=== PATIENT | male | born 1940 | race Caucasian/White ===

== ENCOUNTER 2020-11-08 08:07 | Outpatient (REF) | payer MEDICARE, SELFPAY ==
[2020-11-08 11:44] LABS: Prostate Specific Antigen 3.87 ng/mL (<0.05-4.0)
== END 2020-11-08 08:08 | disposition home or self-care (01) ==
LOC: HO.10HDL 08:07
PROVIDERS: Visit Provider Urology
DX: N40.1 Benign prostatic hyperplasia with lower urinary tract symptoms (principal); Z12.5 Encounter for screening for malignant neoplasm of prostate
CPT/HCPCS: 84153

== ENCOUNTER 2021-04-24 10:42 | Outpatient (REF) | payer MEDICARE, SELFPAY ==
[2021-04-24 10:45] LABS: MANUAL DIFF FLAG NO
[2021-04-24 11:53] LABS: Basophils Percent Auto 0.3 % (0-2); Eosinophils Absolute Auto 0.2 X10*3/uL (0.0-0.4); Eosinophils Percent Auto 3.3 % (0-4); Hematocrit 41.4 % (42-52); Hemoglobin 13.5 g/dl (14.0-18.0); Imm Gran Abs Auto 0.01 X10*3/uL (0.00-0.03); Imm Gran Pct Auto 0.1 % (0.0-0.4); Lymphocytes Absolute Auto 1.5 X10*3/uL (1.2-4.9); Mean Corpuscular HGB Conc 32.6 g/dl (31.0-36.0); Mean Corpuscular Hemoglobin 29.4 pg (27.0-33.0); Mean Corpuscular Volume 90.2 fL (80-98); Mean Platelet Volume 10.2 fL (9.4-12.4); Monocytes Absolute Auto 0.8 X10*3/uL (0.1-1.2); Monocytes Percent Auto 11.5 % (2-11); Neutrophils Absolute Auto 4.2 X10*3/uL (2.0-8.3); Neutrophils Percent Auto 62.8 % (45-73); Platelet Count 196 X10*3/uL (160-400); Red Blood Count 4.59 X10*6/uL (4.60-5.80); Red Cell Distribution Width 12.3 % (11.0-16.0); White Blood Count 6.7 X10*3/uL (4.8-10.8)
[2021-04-24 12:23] LABS: Glucose Urine UA NEG (NEG); Leukocyte Esterase Urine 2+ (NEG); Nitrite Urine POS (NEG); Urine Blood NEG (NEG); Urine Ketones NEG (NEG); Urine Protein NEG (NEG-TRACE)
[2021-04-24 12:26] LABS: Appearance Urine CLOUDY; Color Urine YELLOW
[2021-04-24 13:07] LABS: Bacteria Urine 3+ /LPF; RBC Urine 0-2 /HPF (0); WBC Urine 30-49 /HPF (0-4)
[2021-04-24 13:09] LABS: Estimated Average Glucose 143 mg/dL; Hemoglobin A1c % 6.6 %
[2021-04-24 13:25] LABS: Creatinine Urine 85.36 mg/dL; Microalbum/Creatinine Ratio Ur 29.2 ug/mg cr
[2021-04-24 13:32] LABS: Alanine Aminotransferase 16 U/L (0-40); Albumin Level 4.2 g/dL (3.5-5.0); Alkaline Phosphatase 108 U/L (39-117); Anion Gap 13 (12-20); Aspartate Amino Transferase 19 U/L (5-37); Blood Urea Nitrogen 19 mg/dL (9-16); Calcium 9.5 mg/dL (8.4-10.2); Carbon Dioxide 23 mmol/L (22-29); Chloride 107 mmol/L (96-108); Cholesterol 145 mg/dL; Estimated Glomerular Filt Rate > 60; Glucose Fasting 118 mg/dL (60-99); HDL Cholesterol 60 mg/dL; LDL Cholesterol Calculated 64 mg/dl; Potassium 4.2 mmol/L (3.3-5.1); Sodium 139 mmol/L (135-145); Total Protein 6.6 g/dL (6.5-8.0); Triglycerides 109 mg/dL
[2021-04-24 13:41] LABS: PSA,Total (Free>4and<10) 6.41 ng/mL (0.00-4.00); Reflex LDLD? No
[2021-04-25 10:16] LABS: Free Prostate Spec Ag 1.7 ng/mL; Percent Free Prostate Spec Ag 31 % (calc) (>25); Prostate Specific Ag Total 5.4 ng/mL (< OR = 4.0)
== END 2021-04-24 10:43 | disposition home or self-care (01) ==
LOC: HO.LNP 10:42
PROVIDERS: Visit Provider Internal Medicine
DX: I10 Essential (primary) hypertension (principal); E11.9 Type 2 diabetes mellitus without complications; E78.00 Pure hypercholesterolemia, unspecified; N40.0 Benign prostatic hyperplasia without lower urinary tract symptoms; Z12.5 Encounter for screening for malignant neoplasm of prostate
CPT/HCPCS: 80053; 80061; 81001; 81003; 82043; 83036; 84153; 84154; 85025

== ENCOUNTER 2021-08-11 07:36 | Outpatient (REF) | payer MEDICARE, SELFPAY ==
--- NOTE | ~2021-08-11 | MR_ITS ---
EXAMINATION: MR LUMBAR SPINE WITHOUT AND WITH CONTRAST CLINICAL INFORMATION: Lower extremity pain and weakness. COMPARISON: CT scan of the lumbar spine 09/14 2019. MRI scan of the lumbar spine 03/23/2012. TECHNIQUE: MRI of the lumbar spine was obtained using routine sequences with and without contrast. Intravenous contrast: Gadavist 7.5 mL FINDINGS: VERTEBRAL BODIES AND PARASPINAL STRUCTURES: There is a 3 mm grade 1 anterolisthesis of L4 on L5. There is a trace anterolisthesis of L3 on L4. There is multilevel narrowing of intervertebral disc heights and loss of signal, relatively sparing L5-S1. There are mild degenerative endplate contour changes at multiple levels. There are small Schmorl's nodes at adjacent endplates in the lower thoracic and in the lumbar spine. Vertebral body heights are maintained and no fractures are demonstrated. T1 and T2 hyperintense areas are noted in the bodies of T11 and T1, most consistent with hemangiomata. Overall, marrow signal is slightly heterogenous. There are bilateral renal cysts, most prominent toward the upper pole of the left kidney. The prostate gland is enlarged with a transverse diameter of 6.1 cm. There is no abnormal osseous enhancement. CONUS MEDULLARIS AND CAUDA EQUINA: Normal, terminating at the level of L1. The lower thoracic spinal cord appears normal. There is marked crowding of the cauda equina nerve roots at L1-L2. The filum terminale appears normal. There is no abnormal enhancement of the spinal cord or cauda equina nerve roots. SPINAL LEVELS: T12-L1: There is mild bilateral facet arthropathy. Disc contour is normal. There is no central stenosis or foraminal narrowing. L1-L2: There is moderate bilateral facet arthropathy with ligamenta flava hypertrophy. There is now a broad-based posterior disc protrusion extending into the left greater than right neural foramina, and there is impingement on the exiting right L1 and extraforaminal left L1 nerve roots. There is marked narrowing of the bilateral subarticular recesses, and there is severe central stenosis. This is progressed compared to prior imaging. L2-L3: There is moderate bilateral facet arthropathy. There are sequelae of a posterior decompression. There is a posterior disc protrusion, extending into the neural foramina with impingement on the exiting L2 nerve roots. There is narrowing of the bilateral subarticular recesses. There is no central stenosis. L3-L4: There is severe bilateral facet arthropathy. There are sequelae of a posterior decompression. There is a broad-based posterior disc protrusion extending into the neural foramina bilaterally, more prominently on the right. There is impingement on the exiting L3 nerve roots bilaterally. The neural foramina are further narrowed by facet osteophytes, particularly on the right. There is narrowing of the bilateral subarticular recesses. There is no central stenosis. L4-L5: There is markedly severe bilateral facet arthropathy. There are sequelae of a posterior decompression. There are right greater than left foraminal disc protrusions, and there is severe mass effect on the exiting right L5 nerve root which appears similar compared to prior imaging. The narrowing of the left neural foramen is slightly decreased compared to the prior study. There is narrowing of the bilateral subarticular recesses, and there is moderate to severe central stenosis. L5-S1: There is severe bilateral facet arthropathy. There is a broad-based posterior disc protrusion extending into the neural foramina bilaterally, with impingement on the exiting L5 nerve roots. The foramina are further narrowed by facet osteophytes, particularly on the right. There has been interval decrease in the prominence of the left-sided disc protrusion/extrusion on the left, but there is still moderate central stenosis. MR/MR lumbar spine wo/w con IMPRESSION: 1. At L1-L2 there is facet arthropathy and there is now a broad-based posterior disc protrusion extending into the neural foramina with impingement on the exiting and extraforaminal L1 nerve roots. There is marked narrowing of the subarticular recesses and there is severe central stenosis. 2. At L3-L4 there are sequelae of a posterior decompression. There is impingement on the exiting left L3 nerve from a disc protrusion. There is narrowing of the bilateral subarticular recesses, but there is no central stenosis. 3. At L4-L5 there is markedly severe facet arthropathy. There are sequelae of a posterior decompression. There are bilateral foraminal disc protrusions, more prominent on the right with severe mass effect on the exiting right L5 nerve root. There is moderate to severe central stenosis. 4. At L5-S1 there is severe facet arthropathy. There is a posterior disc protrusion extending into the neural foramina bilaterally with impingement on the exiting L5 nerve roots. There has been interval decrease in a prominent left-sided disc protrusion/extrusion on the left, but there is still moderate central stenosis. 5. There is prostatomegaly.
[2021-08-11 07:54] LABS: Blood Urea Nitrogen 18 mg/dL (9-16); Estimated Glomerular Filt Rate > 60
== END 2021-08-11 07:37 | disposition home or self-care (01) ==
LOC: HO.MRI 07:36
PROVIDERS: PCP Internal Medicine; Visit Provider Physical Medicine & Rehabilitation
DX: M79.605 Pain in left leg (principal); M79.604 Pain in right leg; R53.1 Weakness; R26.81 Unsteadiness on feet
CPT/HCPCS: 36415; 72158; 82565; 84520; A9585

== ENCOUNTER 2021-10-24 10:35 | Outpatient (REF) | payer MEDICARE, SELFPAY ==
[2021-10-24 11:07] LABS: Estimated Average Glucose 134 mg/dL; Hemoglobin A1c % 6.3 %
[2021-10-24 11:16] LABS: Alanine Aminotransferase 20 U/L (0-40); Albumin Level 4.1 g/dL (3.5-5.0); Alkaline Phosphatase 116 U/L (39-117); Aspartate Amino Transferase 20 U/L (5-37); Bilirubin Direct 0.3 mg/dL (0.0-0.5); Bilirubin Total 0.8 mg/dL (0.0-1.0); Cholesterol 155 mg/dL; Glucose Fasting 130 mg/dL (60-99); HDL Cholesterol 61 mg/dL; LDL Cholesterol Calculated 79 mg/dl; Total Protein 6.6 g/dL (6.5-8.0); Triglycerides 78 mg/dL
[2021-10-24 11:50] LABS: Reflex LDLD? No
== END 2021-10-24 10:36 | disposition home or self-care (01) ==
LOC: HO.LNP 10:35
PROVIDERS: Visit Provider Internal Medicine
DX: E11.9 Type 2 diabetes mellitus without complications (principal); E78.00 Pure hypercholesterolemia, unspecified
CPT/HCPCS: 80061; 80076; 82947; 83036

== ENCOUNTER 2021-12-18 14:38 | Outpatient (REF) | payer MEDICARE, SELFPAY ==
[2021-12-18 14:57] LABS: MANUAL DIFF FLAG NO
[2021-12-18 15:15] LABS: Basophils Percent Auto 0.5 % (0-2); Eosinophils Absolute Auto 0.3 X10*3/uL (0.0-0.4); Eosinophils Percent Auto 4.2 % (0-4); Hemoglobin 13.3 g/dl (14.0-18.0); Imm Gran Abs Auto 0.03 X10*3/uL (0.00-0.03); Imm Gran Pct Auto 0.4 % (0.0-0.4); Lymphocytes Absolute Auto 1.4 X10*3/uL (1.2-4.9); Lymphocytes Percent Auto 17.5 % (20-40); Mean Corpuscular HGB Conc 32.4 g/dl (31.0-36.0); Mean Corpuscular Volume 89.5 fL (80.0-98.0); Mean Platelet Volume 9.9 fL (9.4-12.4); Monocytes Absolute Auto 0.9 X10*3/uL (0.1-1.2); Monocytes Percent Auto 11.1 % (2-11); Neutrophils Absolute Auto 5.4 x10*3/uL (2.0-8.3); Neutrophils Percent Auto 66.3 % (45-73); Platelet Count 222 X10*3/uL (160-400); Red Blood Count 4.58 X10*6/uL (4.60-5.80); Red Cell Distribution Width 12.5 % (11.0-16.0); White Blood Count 8.1 X10*3/uL (4.8-10.8)
[2021-12-18 15:28] LABS: Partial Thromboplastin Time 39.3 SEC (24.1-38.0)
[2021-12-18 15:40] LABS: Anion Gap 13 (12-20); Blood Urea Nitrogen 24 mg/dL (9-16); Carbon Dioxide 26 mmol/L (22-29); Chloride 108 mmol/L (96-108); Estimated Glomerular Filt Rate 45; Glucose Random 123 mg/dL (60-115); Potassium 4.9 mmol/L (3.3-5.1); Sodium 142 mmol/L (135-145)
== END 2021-12-18 14:39 | disposition home or self-care (01) ==
LOC: HO.LAB 14:38
PROVIDERS: PCP Internal Medicine; Visit Provider Internal Medicine
DX: Z01.818 Encounter for other preprocedural examination (principal)
CPT/HCPCS: 36415; 80048; 85025; 85610; 85730

== ENCOUNTER 2022-04-30 11:32 | Outpatient (REF) | payer MEDICARE, SELFPAY ==
[2022-04-30 11:37] LABS: MANUAL DIFF FLAG NO
[2022-04-30 11:46] LABS: Basophils Percent Auto 0.4 % (0-2); Eosinophils Absolute Auto 0.3 X10*3/uL (0.0-0.4); Eosinophils Percent Auto 4.6 % (0-4); Hematocrit 40.5 % (42.0-52.0); Imm Gran Abs Auto 0.02 X10*3/uL (0.00-0.03); Imm Gran Pct Auto 0.3 % (0.0-0.4); Lymphocytes Absolute Auto 1.9 X10*3/uL (1.2-4.9); Lymphocytes Percent Auto 26.4 % (20-40); Mean Corpuscular HGB Conc 32.1 g/dl (31.0-36.0); Mean Corpuscular Hemoglobin 28.6 pg (27.0-33.0); Mean Platelet Volume 9.7 fL (9.4-12.4); Monocytes Absolute Auto 0.8 X10*3/uL (0.1-1.2); Neutrophils Absolute Auto 4.1 x10*3/uL (2.0-8.3); Neutrophils Percent Auto 57.3 % (45-73); Platelet Count 212 X10*3/uL (160-400); Red Blood Count 4.55 X10*6/uL (4.60-5.80); Red Cell Distribution Width 12.7 % (11.0-16.0); White Blood Count 7.2 X10*3/uL (4.8-10.8)
[2022-04-30 11:57] LABS: Alanine Aminotransferase 20 U/L (0-40); Albumin Level 4.1 g/dL (3.5-5.0); Alkaline Phosphatase 99 U/L (39-117); Anion Gap 14 (12-20); Aspartate Amino Transferase 19 U/L (5-37); Bilirubin Total 0.8 mg/dL (0.0-1.0); Blood Urea Nitrogen 23 mg/dL (9-16); Calcium 9.3 mg/dL (8.4-10.2); Carbon Dioxide 23 mmol/L (22-29); Chloride 108 mmol/L (96-108); Cholesterol 150 mg/dL; Estimated Glomerular Filt Rate > 60; Glucose Fasting 113 mg/dL (60-99); HDL Cholesterol 60 mg/dL; LDL Cholesterol Calculated 71 mg/dl; Potassium 4.3 mmol/L (3.3-5.1); Sodium 141 mmol/L (135-145); Total Protein 6.5 g/dL (6.5-8.0); Triglycerides 97 mg/dL
[2022-04-30 12:10] LABS: Estimated Average Glucose 137 mg/dL; Hemoglobin A1c % 6.4 %
[2022-04-30 12:18] LABS: PSA,Total (Free>4and<10) 2.85 ng/mL (0.00-4.00)
[2022-04-30 12:23] LABS: Appearance Urine HAZY; Color Urine YELLOW; Glucose Urine UA NEG (NEG); Leukocyte Esterase Urine 2+ (NEG); Nitrite Urine POS (NEG); Urine Blood TRACE (NEG); Urine Ketones NEG (NEG); Urine Protein NEG (NEG-TRACE)
[2022-04-30 12:44] LABS: Creatinine Urine 113.94 mg/dL; Microalbum/Creatinine Ratio Ur 17.5 ug/mg cr
[2022-04-30 13:10] LABS: Bacteria Urine 4+ /LPF; RBC Urine 0 /HPF (0)
== END 2022-04-30 11:33 | disposition home or self-care (01) ==
LOC: HO.LNP 11:32
PROVIDERS: PCP Internal Medicine; Visit Provider Internal Medicine
DX: Z12.5 Encounter for screening for malignant neoplasm of prostate (principal); E11.9 Type 2 diabetes mellitus without complications; E78.00 Pure hypercholesterolemia, unspecified; I10 Essential (primary) hypertension
CPT/HCPCS: 80053; 80061; 81001; 82043; 83036; 84153; 85025

== ENCOUNTER → 2022-06-29 09:11 | Outpatient (BNVA) | payer MEDICARE, SELFPAY | PROVIDERS: PCP Internal Medicine; Visit Provider Surgery | DX: R10.32 Left lower quadrant pain (principal) | CPT/HCPCS: 99212 ==

== ENCOUNTER 2022-07-10 09:00 | Outpatient (REF) | payer MEDICARE, SELFPAY ==
--- NOTE | ~2022-07-10 | CT_ITS ---
EXAMINATION: CT ABDOMEN AND PELVIS WITHOUT CONTRAST CLINICAL INFORMATION: Left lower quadrant pain. COMPARISON: CT abdomen and pelvis 10/22/2019. TECHNIQUE: Multidetector volumetric imaging was performed from the superior aspect of the liver through the pubic symphysis. Sagittal and coronal reformatted images were obtained on the technologist's workstation. This CT examination was performed using dose optimization techniques as appropriate, variously including the following: *Automated exposure control *Adjustment of mA and/or kV according to patient size (this includes techniques or standardized protocols for targeted exams where dose is matched to indication/reason for exam; i.e. extremities or head) *Use of iterative reconstruction technique DLP: 421 mGy-cm. FINDINGS: LUNG BASES: The lung bases are clear. The heart size is normal. LIVER, GALLBLADDER, AND BILIARY TREE: The liver is normal in size, shape, and attenuation. No focal hepatic lesion or biliary ductal dilatation is present. The gallbladder has been surgically removed. PANCREAS: Unremarkable. SPLEEN: Unremarkable. ADRENAL GLANDS: Unremarkable. KIDNEYS AND URETERS: The kidneys are normal in size, shape, and attenuation. There are no radiopaque renal calculi. There is moderate right hydroureteronephrosis likely secondary to prostate enlargement. There is no left-sided hydronephrosis. There are bilateral exophytic renal cyst. The larger lateral left renal cyst midpole medially measures 6.9 x 6.2 cm x 7.6 cm and 5 Hounsfield units. The largest right renal cyst midpole measures 3.9 x 4.1 x 4.2 cm and 6 Hounsfield units. BLADDER: Unremarkable. GASTROINTESTINAL TRACT: There is scattered stool, diverticuli and gas seen throughout the colon without distention. The small bowel loops are normal caliber. Appendix is normal caliber. No free air or inflammatory process seen. There is no free fluid. ABDOMINAL WALL: No significant hernia is appreciated. LYMPH NODES: Normal. VASCULAR: The abdominal aorta is of normal caliber. No aneurysmal dilatation. PELVIC VISCERA: No free air or free fluid seen. OSSEOUS STRUCTURES: There are degenerative disc changes with vacuum disc phenomena L5-S1, L4-L5 disc level. No lytic or sclerotic process seen. CT/CT abdomen pelvis wo con IMPRESSION: There is a bilateral renal cysts, stable. There is moderate right hydroureteronephrosis of unknown etiology. This could be secondary to prostate enlargement. No bladder wall thickening seen. There are no radiopaque renal or gallbladder calculi. Colonic diverticulosis without diverticulitis. The gallbladder has been surgically removed. Moderate prostate enlargement. Fleischner guidelines were followed.
[2022-07-10] MEDS: Barium Sulfate Oral (Mocha) 450 ML ORAL.SUSP 900 ML PO (11:06)
== END 2022-07-10 09:01 | disposition home or self-care (01) ==
LOC: HO.CT 09:00
PROVIDERS: PCP Internal Medicine; Visit Provider Surgery
DX: R10.32 Left lower quadrant pain (principal)
CPT/HCPCS: 74176

== ENCOUNTER → 2022-07-26 11:22 | Outpatient (BNVA) | payer MEDICARE, SELFPAY | PROVIDERS: PCP Internal Medicine; Visit Provider Surgery | DX: R10.32 Left lower quadrant pain (principal) | CPT/HCPCS: 99212 ==

== ENCOUNTER 2022-08-14 09:56 | Outpatient (REF) | payer MEDICARE, SELFPAY ==
[2022-08-14 10:49] LABS: Urine Cytology See Pathology rpt
== END 2022-08-14 09:57 | disposition home or self-care (01) ==
LOC: HO.10HDL 09:56
PROVIDERS: Visit Provider Urology
DX: R31.0 Gross hematuria (principal)
CPT/HCPCS: 88112; 88121

== ENCOUNTER 2022-10-16 09:03 | Outpatient (REF) | payer MEDICARE, SELFPAY ==
[2022-10-16 11:18] LABS: Thyroid Stimulating Hormone 2.86 uIU/mL (0.32-4.0)
[2022-10-16 15:27] LABS: Vitamin B12 1112 pg/mL (200-900)
[2022-10-18 11:59] LABS: Ceruloplasmin 24 mg/dL (18-36)
[2022-10-18 23:29] LABS: Prot Elec - Alpha1 0.3 g/dL (0.2-0.3); Prot Elec - Alpha2 0.9 g/dL (0.5-0.9); Prot Elec - Beta 1 0.4 g/dL (0.4-0.6); Prot Elec - Beta 2 0.3 g/dL (0.2-0.5); Prot Elec - Gamma 0.7 g/dL (0.8-1.7); Prot Elec - Total Protein 6.5 g/dL (6.1-8.1)
[2022-10-19 14:08] LABS: Anti Nuclear Antibody Screen NEGATIVE (NEGATIVE)
== END 2022-10-16 09:04 | disposition home or self-care (01) ==
LOC: HO.10HDL 09:03
PROVIDERS: Visit Provider Internal Medicine
DX: R20.0 Anesthesia of skin (principal); R53.1 Weakness; G62.9 Polyneuropathy, unspecified
CPT/HCPCS: 36415; 82390; 82607; 84165; 84443; 86038; 86039

== ENCOUNTER 2022-10-29 10:56 | Outpatient (REF) | payer MEDICARE, SELFPAY ==
[2022-10-29 12:01] LABS: Estimated Average Glucose 131 mg/dL; Hemoglobin A1c % 6.2 %
[2022-10-29 12:28] LABS: Alanine Aminotransferase 18 U/L (0-40); Albumin Level 4.5 g/dL (3.5-5.0); Alkaline Phosphatase 108 U/L (39-117); Aspartate Amino Transferase 20 U/L (5-37); Bilirubin Direct 0.3 mg/dL (0.0-0.5); Cholesterol 167 mg/dL; Glucose Fasting 158 mg/dL (60-99); HDL Cholesterol 63 mg/dL; LDL Cholesterol Calculated 83 mg/dl; Total Protein 6.8 g/dL (6.5-8.0); Triglycerides 109 mg/dL
[2022-10-29 14:11] LABS: Reflex LDLD? No
== END 2022-10-29 10:57 | disposition home or self-care (01) ==
LOC: HO.LNP 10:56
PROVIDERS: Visit Provider Internal Medicine
DX: E11.9 Type 2 diabetes mellitus without complications (principal); E78.00 Pure hypercholesterolemia, unspecified
CPT/HCPCS: 80061; 80076; 82947; 83036

== ENCOUNTER 2023-05-02 10:57 | Outpatient (REF) | payer MEDICARE, SELFPAY ==
[2023-05-02 11:02] LABS: MANUAL DIFF FLAG NO
[2023-05-02 12:13] LABS: Basophils Percent Auto 0.4 % (0-2); Eosinophils Absolute Auto 0.3 X10*3/uL (0.0-0.4); Eosinophils Percent Auto 4.3 % (0-4); Hematocrit 41.8 % (42.0-52.0); Hemoglobin 13.3 g/dl (14.0-18.0); Imm Gran Abs Auto 0.02 X10*3/uL (0.00-0.03); Imm Gran Pct Auto 0.3 % (0.0-0.4); Lymphocytes Absolute Auto 1.5 X10*3/uL (1.2-4.9); Lymphocytes Percent Auto 21.3 % (20-40); Mean Corpuscular HGB Conc 31.8 g/dl (31.0-36.0); Mean Corpuscular Volume 91.1 fL (80.0-98.0); Mean Platelet Volume 9.9 fL (9.4-12.4); Monocytes Absolute Auto 0.9 X10*3/uL (0.1-1.2); Monocytes Percent Auto 11.7 % (2-11); Neutrophils Absolute Auto 4.5 x10*3/uL (2.0-8.3); Platelet Count 209 X10*3/uL (160-400); Red Blood Count 4.59 X10*6/uL (4.60-5.80); Red Cell Distribution Width 12.6 % (11.0-16.0); White Blood Count 7.2 X10*3/uL (4.8-10.8)
[2023-05-02 12:14] LABS: Appearance Urine Cloudy; Color Urine Yellow; Glucose Urine UA Negative (Negative); Leukocyte Esterase Urine Moderate (2+) (Negative); Nitrite Urine Positive (Negative); UMIC TRIGGER UACC YES; Urine Blood Negative (Negative); Urine Ketones Negative (Negative); Urine Protein Trace mg/dL (Neg-Trace)
[2023-05-02 12:17] LABS: Bacteria Urine 4+ (None Seen); RBC Urine 0-2 /HPF (0-2); Squamous Epithelial Cell Urine 0-2 /HPF (0-2); UACC Culture Trigger YES; WBC Urine >50 /HPF (0-5)
[2023-05-02 12:29] LABS: Estimated Average Glucose 131 mg/dL; Hemoglobin A1c % 6.2 %
[2023-05-02 12:48] LABS: Alanine Aminotransferase 18 U/L (0-40); Albumin Level 4.1 g/dL (3.5-5.0); Alkaline Phosphatase 117 U/L (39-117); Anion Gap 17 (12-20); Aspartate Amino Transferase 22 U/L (5-37); Bilirubin Total 0.5 mg/dL (0.0-1.0); Blood Urea Nitrogen 24 mg/dL (9-16); Calcium 9.4 mg/dL (8.4-10.2); Carbon Dioxide 24 mmol/L (22-29); Chloride 110 mmol/L (96-108); Estimated Glomerular Filt Rate > 60; Glucose Fasting 120 mg/dL (60-99); Potassium 4.3 mmol/L (3.3-5.1); Sodium 147 mmol/L (135-145); Total Protein 6.6 g/dL (6.5-8.0)
[2023-05-02 12:58] LABS: Creatinine Urine 136.99 mg/dL; Microalbum/Creatinine Ratio Ur 21.1 ug/mg cr
[2023-05-02 13:02] LABS: PSA,Total (Free>4and<10) 3.23 ng/mL (0.00-4.00)
== END 2023-05-02 10:58 | disposition home or self-care (01) ==
LOC: HO.LNP 10:57
PROVIDERS: Visit Provider Internal Medicine
DX: Z12.5 Encounter for screening for malignant neoplasm of prostate (principal); E11.9 Type 2 diabetes mellitus without complications; E78.00 Pure hypercholesterolemia, unspecified; N40.0 Benign prostatic hyperplasia without lower urinary tract symptoms; I10 Essential (primary) hypertension
CPT/HCPCS: 80053; 81001; 82043; 83036; 84153; 85025; 87086; 87088; 87186

== ENCOUNTER 2023-05-10 11:24 | Outpatient (REF) | payer MEDICARE, SELFPAY ==
[2023-05-10 11:42] LABS: Appearance Urine Clear; Color Urine Yellow; Glucose Urine UA Negative (Negative); Leukocyte Esterase Urine Moderate (2+) (Negative); Nitrite Urine Negative (Negative); PH 5.5 (5.0-9.0); Specific Gravity - Urine 1.015 (1.005-1.025); UMIC TRIGGER UACC YES; Urine Blood Negative (Negative); Urine Ketones Negative (Negative); Urine Protein Negative (Neg-Trace)
[2023-05-10 12:03] LABS: Bacteria Urine 2+ (None Seen); Hyaline Casts Urine 0-2 /LPF (0-2); RBC Urine 0-2 /HPF (0-2); Squamous Epithelial Cell Urine 0-2 /HPF (0-2); UACC Culture Trigger YES
== END 2023-05-10 11:25 | disposition home or self-care (01) ==
LOC: HO.LNP 11:24
PROVIDERS: Visit Provider Internal Medicine
DX: N39.0 Urinary tract infection, site not specified (principal)
CPT/HCPCS: 81001; 87086

== ENCOUNTER 2023-11-07 11:28 | Outpatient (REF) | payer MEDICARE, SELFPAY ==
[2023-11-07 12:15] LABS: Estimated Average Glucose 131 mg/dL; Hemoglobin A1c % 6.2 % (<6.0)
[2023-11-07 12:33] LABS: Alanine Aminotransferase 13 U/L (0-40); Albumin Level 4.2 g/dL (3.5-5.0); Alkaline Phosphatase 98 U/L (39-117); Aspartate Amino Transferase 17 U/L (5-37); Bilirubin Direct 0.3 mg/dL (0.0-0.5); Bilirubin Total 0.6 mg/dL (0.0-1.0); Glucose Fasting 130 mg/dL (60-99); Total Protein 6.9 g/dL (6.5-8.0)
[2023-11-07 12:36] LABS: Cholesterol 142 mg/dL (<200); HDL Cholesterol 60 mg/dL (>40); LDL Cholesterol Calculated 68 mg/dL (<100); Triglycerides 70 mg/dL (<150)
[2023-11-07 12:45] LABS: Reflex LDLD? No
== END 2023-11-07 11:29 | disposition home or self-care (01) ==
LOC: HO.LNP 11:28
PROVIDERS: Visit Provider Internal Medicine
DX: E11.9 Type 2 diabetes mellitus without complications (principal); E78.00 Pure hypercholesterolemia, unspecified
CPT/HCPCS: 80061; 80076; 82947; 83036

== ENCOUNTER 2024-04-02 09:48 | Outpatient (REF) | payer MEDICARE, SELFPAY ==
--- NOTE | ~2024-04-02 | XR_ITS ---
EXAMINATION: XR HIP, LEFT CLINICAL INFORMATION: Left hip pain. COMPARISON: CT abdomen/pelvis dated 07/10/2022. TECHNIQUE: Two views of the left hip. FINDINGS: No acute fracture or dislocation. Mild left hip joint space narrowing with moderate marginal osteophytes. Posterior acetabular unfused osteophyte, unchanged. Lateral acetabular subchondral cystic change. Findings are progressed when compared to the prior examination. No concerning lytic or blastic osseous lesion. No evidence of avascular necrosis. XR/XR hip LT min 2V IMPRESSION: Moderate left hip osteoarthritis, progressed when compared to the prior CT.
== END 2024-04-02 09:49 | disposition home or self-care (01) ==
LOC: HO.XRAY 09:48
PROVIDERS: PCP Internal Medicine; Visit Provider Internal Medicine
DX: M25.552 Pain in left hip (principal)
CPT/HCPCS: 73502

== ENCOUNTER 2024-04-14 10:19 | Outpatient (AMB) | payer MEDICARE, SELFPAY ==
--- NOTE | 2024-04-14 10:25 | MHC.OFFVIS ---
Vital Signs 04/14/24 10:28 Height 5 ft 10 in Weight 156 lb BMI 22.4 Intake Visit Reasons: New Patient - Left Wrist Injury Intake Note: Thomas an 83 year old left hand dominant male who presents today as a new patient for an evaluation of left wrist. Patient reports about 3 months he slipped on his bathroom floor causing him to fall on an outstretched hand. His pain has improved however he continues to have discomfort in the radial aspect of wrist. tender with movement of his thumb. He used a wrist brace for a while however he now only uses if he goes to gym. Allergies No Known Allergies Allergy (Mild, Unverified 04/14/24 10:35) NKA saurav inhibitors Allergy (Unknown, Unverified 04/14/24 10:35) Unknown Medication List - Last Reconciled 04/14/24 by Aleah Ambrose PA-C aspirin (Adult Aspirin Regimen) 81 mg PO DAILY atorvastatin 20 mg PO DAILY dutasteride 0.5 mg PO DAILY losartan 100 mg PO DAILY metformin mg PO metoprolol tartrate 25 mg PO BID tamsulosin 0.4 mg PO DAILY HPI HPI New Patient - Left Wrist Injury: Details: 83-year-old left hand dominant male who presents to the office today for evaluation of left wrist injury after he slipped on the bathroom floor causing him to fall on an outstretched hand, about 3 months ago. He reports he experienced a clicking in his wrist after the injury. He currently states he has improvement in his pain however he continues to have pain and discomfort on the radial aspect of her wrist. His wrist pain comes with twisting motions and he experiences tenderness with movement of his thumb. He is wearing the wrist brace when at gym. He has tried Tylenol for his pain. [facility] Medical History Bladder cancer Hypercholesteremia Hypertension Myocardial infarction Prostatism Surgical History H/O colonoscopy (12/17/11) History of left inguinal hernia repair (06/13/20) Social History (Updated 04/14/24 @ 10:35 by VEE Adkins) Alcohol intake: never Patient Tobacco Use Status: Never used Tobacco Current occupation: left hand dominant Review of Systems Const All systems reviewed & are unremarkable except as noted in HPI and below Physical Exam Vital Signs: BMI result Body Mass Index 22.4 Const General: cooperative, healthy appearing, comfortable, no acute distress, well developed and alert Orientation/consciousness: patient oriented x3 HEENT Head: Yes normal to inspection, Yes normocephalic and Yes atraumatic Eyes General: appearance normal, both eyes and all related structures Resp Effort & Inspection: normal respiratory effort and able to speak in complete sentences Cardio Rate: regular rate Peripheral pulses: Peripheral pulses 2+ throughout GI Palpation (GI): Soft to palpation Skin Lesions: no lesions Rashes: no rashes Neuro General: patient oriented x3 Extrem Other: Left wrist: Without deformity. No swelling. Mild tenderness over the radial styloid. Positive Bautista?s. No pain with CMC grind.? is able to make a full fist and fully extend all digits. NVI. Results Reviewed Results Reviewed: Xrays were obtained in the office today and personally reviewed by me of the left wrist are negative for acute or chronic abnormalities. Assessment & Plan Assessment & Plan (1) De Quervain's tenosynovitis, left: Code(s): M65.4 - Radial styloid tenosynovitis [de Quervain] Category: Medical Plan He was given a thumb spica Velcro wrist splint in the office today which he will wear with lifting activities. I recommend he wear the splint with sleeping however he states that he rather not wear it when sleeping. If symptoms persist or worsens, patient will contact the office for an injection, otherwise follow-up as needed. ? Orders: Orders XR wrist LT min 3V Today M25.532 - Pain in left wrist Patient Instructions: Scribed for Aleah Ambrose PA-C, by Nemesio Webb medical staff assistant, on 04/14/2024 at 10:30 AM EST.? I, Aleah Ambrose PA-C, have personally reviewed and agree with the information entered by the scribe. Coding Level of Care Code New Pt Level 3 (18388) Diagnoses De Quervain's tenosynovitis, left M65.4
[2024-04-14 10:28] VITALS: BMI 22.4
== END 2024-04-14 11:48 | disposition home or self-care (01) ==
PROVIDERS: PCP Internal Medicine; Visit Provider Physician Assistant
DX: M65.4 Radial styloid tenosynovitis [de Quervain] (principal)
CPT/HCPCS: 99203

== ENCOUNTER 2024-04-14 15:26 | Outpatient (REF) | payer MEDICARE, SELFPAY ==
--- NOTE | ~2024-04-14 | XR_ITS ---
EXAMINATION: XR WRIST, LEFT CLINICAL INFORMATION: Pain in left wrist. COMPARISON: None available. TECHNIQUE: PA, lateral, and oblique views of the left wrist. FINDINGS: The bones are diffusely demineralized. Moderate degenerative changes in the first carpometacarpal joint with joint space narrowing and hypertrophic change. Mild degenerative changes with narrowing and hypertrophic change on limited images of the metacarpophalangeal joints. Narrowing with degenerative changes in the radiocarpal space. A ring is present on the partially imaged proximal fourth digit. Multiple small ossific/calcific densities along the radial aspect of the distal radius and also adjacent to the distal ulna, of indeterminate age and etiology. XR/XR wrist LT min 3V IMPRESSION: 1. Moderate degenerative changes in multiple joints as detailed above. 2. Multiple small ossific/calcific densities along the radial aspect of the distal radius and also adjacent to the distal ulna, of indeterminate age and etiology.
== END 2024-04-14 15:27 | disposition home or self-care (01) ==
LOC: HO.HOSX 15:26
PROVIDERS: Visit Provider Physician Assistant
DX: M65.4 Radial styloid tenosynovitis [de Quervain] (principal)
CPT/HCPCS: 73110; 99202

== ENCOUNTER 2024-05-18 10:59 | Outpatient (REF) | payer MEDICARE, SELFPAY ==
[2024-05-18 11:02] LABS: MANUAL DIFF FLAG NO
[2024-05-18 11:22] LABS: Appearance Urine Cloudy; Color Urine Yellow; Glucose Urine UA Negative (Negative); Leukocyte Esterase Urine Moderate (2+) (Negative); Nitrite Urine Positive (Negative); UMIC TRIGGER UACC YES; Urine Blood Negative (Negative); Urine Ketones Negative (Negative); Urine Protein Trace mg/dL (Neg-Trace)
[2024-05-18 11:25] LABS: Basophils Percent Auto 0.6 % (0-2); Eosinophils Absolute Auto 0.3 X10*3/uL (0.0-0.4); Eosinophils Percent Auto 4.5 % (0-4); Hematocrit 39.9 % (42.0-52.0); Imm Gran Abs Auto 0.03 X10*3/uL (0.00-0.03); Imm Gran Pct Auto 0.5 % (0.0-0.4); Lymphocytes Absolute Auto 1.4 X10*3/uL (1.2-4.9); Lymphocytes Percent Auto 22.2 % (20-40); Mean Corpuscular HGB Conc 32.6 g/dl (31.0-36.0); Mean Corpuscular Hemoglobin 29.4 pg (27.0-33.0); Mean Corpuscular Volume 90.3 fL (80.0-98.0); Mean Platelet Volume 9.5 fL (9.4-12.4); Monocytes Absolute Auto 0.7 X10*3/uL (0.1-1.2); Monocytes Percent Auto 11.5 % (2-11); Neutrophils Absolute Auto 3.8 x10*3/uL (2.0-8.3); Neutrophils Percent Auto 60.7 % (45-73); Platelet Count 223 X10*3/uL (160-400); Red Blood Count 4.42 X10*6/uL (4.60-5.80); Red Cell Distribution Width 12.8 % (11.0-16.0); White Blood Count 6.3 X10*3/uL (4.8-10.8)
[2024-05-18 11:26] LABS: Bacteria Urine 4+ (None Seen); Hyaline Casts Urine 0-2 /LPF (0-2); RBC Urine 0-2 /HPF (0-2); Squamous Epithelial Cell Urine 0-2 /HPF (0-2); UACC Culture Trigger YES; WBC Urine >50 /HPF (0-5)
[2024-05-18 11:46] LABS: Alanine Aminotransferase 12 U/L (0-40); Alkaline Phosphatase 117 U/L (39-117); Anion Gap 13 (12-20); Aspartate Amino Transferase 13 U/L (5-37); Bilirubin Total 0.5 mg/dL (0.0-1.0); Blood Urea Nitrogen 23 mg/dL (9-16); Calcium 9.6 mg/dL (8.4-10.2); Carbon Dioxide 25 mmol/L (22-29); Chloride 108 mmol/L (96-108); Cholesterol 149 mg/dL (<200); Estimated Glomerular Filt Rate > 60; Glucose Random 139 mg/dL (60-115); HDL Cholesterol 58 mg/dL (>40); LDL Cholesterol Calculated 74 mg/dL (<100); Potassium 4.2 mmol/L (3.3-5.1); Sodium 142 mmol/L (135-145); Total Protein 6.5 g/dL (6.5-8.0); Triglycerides 88 mg/dL (<150)
[2024-05-18 12:05] LABS: PSA,Total (Free>4and<10) 4.56 ng/mL (0.00-4.00)
[2024-05-18 12:09] LABS: Estimated Average Glucose 140 mg/dL; Hemoglobin A1c % 6.5 % (<6.0)
[2024-05-18 12:21] LABS: Creatinine Urine 105.46 mg/dL; Microalbum/Creatinine Ratio Ur 37.9 ug/mg cr (<30)
[2024-05-19 11:07] LABS: Free Prostate Spec Ag 1.1 ng/mL; Percent Free Prostate Spec Ag 24 % (calc) (>25); Prostate Specific Ag Total 4.5 ng/mL (< OR = 4.0)
== END 2024-05-18 11:00 | disposition home or self-care (01) ==
LOC: HO.LNP 10:59
PROVIDERS: Visit Provider Internal Medicine
DX: E11.9 Type 2 diabetes mellitus without complications (principal); E78.00 Pure hypercholesterolemia, unspecified; N40.0 Benign prostatic hyperplasia without lower urinary tract symptoms; I10 Essential (primary) hypertension; Z12.5 Encounter for screening for malignant neoplasm of prostate
CPT/HCPCS: 80053; 80061; 81001; 82043; 82570; 83036; 84153; 84154; 85025; 87086

== ENCOUNTER 2024-11-23 11:13 | Outpatient (REF) | payer MEDICARE, SELFPAY ==
[2024-11-23 12:29] LABS: Estimated Average Glucose 137 mg/dL; Hemoglobin A1C 169.9317 umol/L; Hemoglobin A1c % 6.4 % (<6.0)
[2024-11-23 12:56] LABS: Alanine Aminotransferase 17 U/L (0-40); Albumin Level 4.4 g/dL (3.5-5.0); Alkaline Phosphatase 107 U/L (39-117); Aspartate Amino Transferase 28 U/L (5-37); Bilirubin Direct 0.2 mg/dL (0.0-0.5); Bilirubin Total 0.6 mg/dL (0.0-1.0); Cholesterol 160 mg/dL (<200); Glucose Fasting 137 mg/dL (60-99); HDL Cholesterol 72 mg/dL (>40); LDL Cholesterol Calculated 67 mg/dL (<100); Total Protein 7.1 g/dL (6.5-8.0); Triglycerides 108 mg/dL (<150)
[2024-11-23 13:39] LABS: Reflex LDLD? No
== END 2024-11-23 11:14 | disposition home or self-care (01) ==
LOC: HO.LNP 11:13
PROVIDERS: Visit Provider Internal Medicine
DX: E11.9 Type 2 diabetes mellitus without complications (principal); E78.00 Pure hypercholesterolemia, unspecified
CPT/HCPCS: 80061; 80076; 82947; 83036

== ENCOUNTER 2025-05-18 08:00 | Outpatient (REF) | payer MEDICARE, SELFPAY ==
--- OUTSIDE RECORDS SUMMARY | 2024-11-23 03:15 | XMS_ITS ---
Author Organization Brian Us MD Address [address] [place] [phone] Care Team Providers Care Global Analytics Head Name Role Phone Brian Us Primary Care Provider Results Component Value Reference Range Notes Liver Panel Reviewed date:11/23/2024 05:56:35 PM Interpretation: Performing Lab:[facility], [address] [place] [id number] Notes/Report: Bilirubin Total 0.6 0.0-1.0 mg/dL Bilirubin Direct 0.2 0.0-0.5 mg/dL Aspartate Amino Transferase 28 5-37 U/L Alanine Aminotransferase 17 0-40 U/L Total Protein 7.1 6.5-8.0 g/dL Albumin Level 4.4 3.5-5.0 g/dL Alkaline Phosphatase 107 39-117 U/L Glucose Fasting Reviewed date:11/23/2024 05:57:01 PM Interpretation: Performing Lab:[address] [id number] Notes/Report: Glucose Fasting 137 60-99 mg/dL A fasting glucose of 126 mg/dl or greater on more than one occasion is considered diagnostic of diabetes. Lipid Panel with Reflex Reviewed date:11/23/2024 05:57:10 PM Interpretation: Performing Lab:[address] [id number] Notes/Report: Triglycerides 108 <150 mg/dL Desirable Triglyceride: less than 150 mg/dL Borderline High Triglyceride 150-199 mg/dL High Triglyceride: 200-499 mg/dL Very High Triglyceride: greater than or equal to 5OO mg/dL Cholesterol 160 <200 mg/dL Desirable Cholesterol: less than 200 mg/dL Borderline High Cholesterol: 200-239 mg/dL High Cholesterol: greater than 239 mg/dL LDL Cholesterol Calculated 67 <100 mg/dL Desirable LDL: less than 100 mg/dL Near Optimal/Above Optimal LDL: 110-129 mg/dL Borderline High LDL: 130-159 mg/dL High LDL: 160-189 mg/dL Very High LDL: greater than or equal to 190 mg/dL HDL Cholesterol 72 >40 mg/dL Desirable HDL: greater than 40 mg/dL Note: This HDL assay may give artificially low results in patients with liver disease. Hemoglobin A1c Reviewed date:11/23/2024 05:56:44 PM Interpretation: Performing Lab:[address] [phone] Notes/Report: Hemoglobin A1c % 6.4 <6.0 % Hemoglobin A1C Reference Range Adults: 4.8 - 6.0 % Non diabetic: < 6.0 % Goal: < 7.0 % Additional Action Suggested: > 8.0 % Note: Hemoglobin A1c results are invalid for patients with abnormal amounts of HbF. Blood transfusions may impact the HbA1c concentration in the patient sample. Estimated Average Glucose 137 eAG = Estimated average glucose which is %A1C expressed as average glucose, using the formula of the V7W-Twsdhry Average Glucose study (ADAG), Diabetes Care, Vol.31,#8, Jun. 2007 REASON FOR VISIT FASTING LIPIDS Encounters Encounter Location Date Provider Diagnosis Brian Us MD [address] [place] [phone] 11/23/2024 Brian Us Type 2 diabetes sherrno itus without complication, without long-term current use of insulin E11.9 and Hypercholesteremia E78.00 Assessments Encounter Date Diagnosis (ICD Code) Assessment Notes Treatment Notes Treatment Clinical Notes Section Notes 11/23/2024 Type 2 diabetes mellitus without complication, without long-term current use of insulin (ICD-10 - E11.9) 11/23/2024 Hypercholesteremia (ICD-10 - E78.00) Plan Of Treatment Next Appt Details Provider Name:Brian Heller ier, 06/17/2025 09:30:00 AM, [address] [place] [address], [place] [address], [place], [place], [phone], Progress Notes * Thomas NAQVI WDOB: [birth year] (85 yo M)Acc No.[id number]:11/23/2024 Progress Note Patient: Thomas MENDOZA Provider: Reynaldo Us MD :1940 A ge:84 Y S ex:Male Date:11/23/2024 Address:[address] [place], [place] [phone] Subjective: * Chief Complaints: * 1 . FASTING LIPIDS. * Medical History: Objective: * Vitals: Assessment: * Assessment: 1. T ype 2 diabetes mellitus without complication, without long-term current use of insulin - E11.9 (Primary) 2 . H ypercholesteremia - E78.00 Plan: * Treatment: 2. H ypercholesteremia L AB: Liver Panel (Collection Date & Time - 11/23/2024 07:15 AM) L AB: Glucose Fasting (Collection Date & Time - 11/23/2024 07:15 AM) L AB: Lipid Panel with Reflex (Collection Date & Time - 11/23/2024 07:15 AM) L AB: Hemoglobin A1c (Collection Date & Time - 11/23/2024 07:15 AM) * Procedure Codes: 3 6415 VENIPUNCT, ROUTINE* * * The named appointment provid er may or may not be the originator of this progress note, and it is not deemed complete until electronically signed by the appointment provider. Sign off status: Pending * Provider: Reynaldo Us MD Date: 0 11/23/2024 Generated for Daniela mixon/Bethel/Alejandroitting on: 0 05/18/2025 12:25 PM EDT
[2025-05-18 11:14] LABS: MANUAL DIFF FLAG NO
[2025-05-18 11:19] LABS: Appearance Urine Clear; Glucose Urine UA Negative (Negative); Hematocrit 40.4 % (42.0-52.0); Hemoglobin 13.3 g/dl (14.0-18.0); Imm Gran Abs Auto 0.02 X10*3/uL (0.00-0.03); Imm Gran Pct Auto 0.3 % (0.0-0.4); Lymphocytes Absolute Auto 1.7 X10*3/uL (1.2-4.9); Mean Corpuscular HGB Conc 32.9 g/dl (31.0-36.0); Mean Corpuscular Hemoglobin 29.2 pg (27.0-33.0); Mean Corpuscular Volume 88.6 fL (80.0-98.0); NRBC Abs Auto 0.000 X10*3/uL (0.0-0.012); NRBC Pct Auto 0.0 /100WBC (0.0-0.2); PH 5.5 (5.0-9.0); Platelet Count 204 X10*3/uL (160-400); Red Blood Count 4.56 X10*6/uL (4.60-5.80); Specific Gravity - Urine 1.015 (1.005-1.025); UMIC TRIGGER UACC YES; White Blood Count 7.4 X10*3/uL (4.8-10.8)
[2025-05-18 11:32] LABS: Hemoglobin A1C 168.7379 umol/L; Total Hemoglobin (HGBA1C) 3499.9205 umol/L
[2025-05-18 11:35] LABS: Alanine Aminotransferase 17 U/L (0-40); Albumin Level 4.4 g/dL (3.5-5.0); Alkaline Phosphatase 96 U/L (39-117); Anion Gap 14 (12-20); Aspartate Amino Transferase 23 U/L (5-37); Blood Urea Nitrogen 19 mg/dL (9-16); Calcium 9.5 mg/dL (8.4-10.2); Carbon Dioxide 24 mmol/L (22-29); Chloride 107 mmol/L (96-108); Cholesterol 158 mg/dL (<200); Estimated Glomerular Filt Rate > 60; HDL Cholesterol 60 mg/dL (>40); Potassium 4.3 mmol/L (3.3-5.1); Sodium 141 mmol/L (135-145); Total Protein 6.8 g/dL (6.5-8.0); Triglycerides 145 mg/dL (<150)
[2025-05-18 12:04] LABS: PSA,Total (Free>4and<10) 5.65 ng/mL (0.00-4.00)
[2025-05-18 12:10] LABS: Microalbum/Creatinine Ratio Ur 10.4 ug/mg cr (<30)
--- OUTSIDE RECORDS SUMMARY | 2025-05-18 12:25 | XMS_ITS | Patient Health Record ---
Author Organization [facility] Address [address] [place] [address] Care Team Providers Care Wan Support Specialist Name Role Phone Brian Us MD Primary Care Provider Michelle Toth Unavailable [phone] Reason For Referral No Information Medications Medication SIG (Take, Route, Frequency, Duration) Notes Start Date End Date Status Crestor 40mg Active MoviPrep 100 GM as directed Orally 10/04/201111/2024 Active Metoprolol Tartrate 25mg Active Aspir-81 81mg Active Losartan Potassium 50mg Active Problems Problem Type SNOMED Code ICD Code Onset Dates Problem Status W/U Status Risk Notes Problem Diverticulosis of colon (finding) (124504908) Diverticulosis of colon (without mention of hemorrhage) (562.10) Active confirmed Problem Screening for malignant neoplasm of colon (758445140) Special screening for malignant neoplasms, colon (V76.51) Active confirmed Plan Of Treatment Future Test Test Name Order Date COLONOSCOPY 10/04/2011 Insurance Providers Payer Name Payer Address Payer Phone Subscriber Number Group Number Insured Name Patient Relationship to Insured Coverage Start Date Coverage End Date [facility] [employer] [address] [place] [address] [id number] MICHELLE MERAZ Self - patient is the insured Medical (General) History Medical History History ICD Code hypertension PR about 4 or 5 years ago tr eated with balloon angioplasty, without any subsequent problems bladder cancer treated with cystoscopy he denies any history of diabetes, lung disease, stroke, nor renal disease Surgical History Surgery Date(Month/Year) cholecystectomy cystoscopies for bladder cancer umbilical hernia surgery
--- OUTSIDE RECORDS SUMMARY | 2025-05-18 12:25 | XMS_ITS | Data Portability ---
Author Organization [facility], [facility] Address [address] [place] [address] Care Team Providers Care Line Helper Name Role Phone NAS [facility] Primary Care Provider Assessment Encounter Date Assessment Date Assessment LastModified by Organization Details LastModified Time 04/30/2024 04/30/2024 Imaging: Imaging ordered, independently reviewed and interpreted by Ron Paz MD reveals the following findings: XR Hip Left Hip: Two views of the hip were obtained including AP pelvis and groin lateral views. Moderate to severe DJD present. Changes consistent with osteoarthritis including joint space narrowing, subchondral sclerosis, and osteophyte formation. Arthrosis primarily affects the superior compartment. Impression: Bilateral hip posterior arthritis, left currently symptomatic, right currently asymptomatic Plan: I am prescribing this patient oral meloxicam. We had a legnthy discussion today regarding the nature of this medication including its indications, contradindications, risks, and potential side effects. The patient is to take this medication once daily in the morning and is specifically instructed to take it with food in order to reduce the risk of gastorintestional upset. I explained to the patient that this medication often requires a couple of days before it reaches steady-state within the blood and as such the patient may not experience relief with this medication until after a few days of taking it. I also advised the patient that they should contact their primary care provider to notify them that I have started this medication, as prolonged use of oral anti-inflammatory pain medications should be paired with routine assessments of kidney function. He was about to run out of his meloxicam and so I prescribed him a refill of this medication, I placed 3 refills on the prescription but advised him that he should consider coming off the medication when he has an intra-articular injection into his left hip. We are going to get him scheduled for an intra-articular injection with one of our physician assistants, and if he comes off the meloxicam following this injection and finds that he continues to experience good pain relief, then I would recommend he continue to remain off of meloxicam until his pain worsens again. We talked quite a bit today about the risk of kidney injury with long-acting anti-inflammatories , at his age of 84 he needs to be very cautious about use of this medication and I advised him that it is not realistic to expect that he would be able to remain on it for multiple years without facing the prospect of kidney damage. I think he would also benefit normal sleeve from physical therapy. My hope is that with a combination of physical therapy and an intra-articular injection, he is able to maintain excellent pain relief and function without the need for continuous anti-inflammatory treatment. He is certainly a candidate for hip replacement surgery but as long as he wishes to avoid surgery, we should try to enable that with continued nonsurgical treatment CC Dr. Nas Ruiz [email or web address] Not available 04/30/2024 10:48:01 Plan of Treatment Reminders Order Date Submit Date Provider Last Modified By Organization Details Last Modified Time Details Appointments None recorded. Lab None recorded. Referral physical therapist referral - left hip OA protocol, stretching strengtheni ng and ROM 2023 024 [email or web address] 14 Not available 16:05:29 Procedures None recorded. Surgeries None recorded. Imaging XR, hip, unilateral, 2 or 3 view - 203 2V left hip eval 2023 024 abrothers 14 [facility], [address] [facility] [place], [facility] [address], [place], [address], 4 16:05:29 Medication Orders meloxicam 15 mg tablet 2023 024 [facility] #[id number], [address] [facility], [place], [address], 4 14:45:29 Patient TargetsNo targets recorded. Patient InstructionsNo instructions recorded. Reason for Referral Physical Therapist Referral for Arthritis of left hip left hip OA protocol, stretching strengthening and ROM Referring Physician: Ron Paz, Orthopedic Surgery, [phone] Encounter Date: 04/30/2024 Results Created Date Observation Date Name Description Value Unit Range Abnormal Flag Note LastModifiedBy Organization Detail LastModifiedTime 04/07/20 24 04/02/2024 bobi apurva/fernando hall tic resul t No observ ation record ed. [email or web address] [facility] [address], [place], [address], 04/08/2024 11:26:39 04/30/20 24 04/30/2024 XR, hip, unila teral , 2 or 3 view http:/ [email or web address] ?Encry pted=s hAaTro YD8dLq bEUv6g %2BXZw aYqtaq 0bqfl% 2Fg9IQ a4ajBk vP9nXo QUaueC m3YtLR FvZlgJ JJ8mAn HZtai3 8t7502 AC0Kub nqBVqL eUC8mr 84%3D INTERFACE [facility] [address], [place], [address], 04/30/2024 09:20:19 04/30/20 24 04/30/2024 XR, hip, unila teral , 2 or 3 view http:/ [email or web address] ?Encry pted=s hAaTro YD8dLq bEUv6g %2BXZw aYqtaq 0bqfl% 2Fg9IQ a4ajBk vP9nXo QUaueC m3YtLR Fv[facility] 6o1323 AC0Kub nqBVqL eUC8mr 84%3D INTERFACE [facility] [address], [place], [address], 04/30/2024 09:20:21 Result Notes Documentation Provider Name and Address Organization Details Recorded Time Xr, Hip, Unilateral, 2 Or 3 View : [email or web address] Encrypted=xwPbNreEZ7gLmnK Uv6g%0TDFfmEudpe1ejch%2Fg 0ZMh0trTvvI6bAmFNutpXb7Kf GOSeGbaRGQ0nJaYLelq29r209 4CQ6QkzkxLDgKrJC4rg04%3D Not Available [facility] 04/30/2024 09:2 0:20 Xr, Hip, Unilateral, 2 Or 3 View : [email or web address] Encrypted=gdZpEwlZW7tTumH Uv6g%2PTBpmRsvgd4zbdp%2Fg 5REd3jjAgbB2hMoOAkolLn8No QPJqIaiSPE9fQiYNjdd82m975 0ZD7DxukzRCrGgMH9bs93%3D Not Available [facility] 04/30/2024 09:2 0:22 Problems Name Problem SNOMED Code Status Onset Date Resolution Date Notes Provider Name and Address Organization Details Recorded Time Arthritis of left hip 8886061209141 105 Active 2023 Ron Paz MD [address], [place], [address] , [facility] 4 09:45:29 Osteoarthr itis of left hip joint 9483410138893 08 Active 2023 Ron Paz MD [address], [place], [address] , [facility] 4 10:47:56 Problem Notes None recorded. Medical Equipment None Reported. Allergies No known drug allergies Medications Name Sig Start Date Stop Date Status Note LastModified by Organization Details LastModified Time metformin 500 mg tablet active Not Available Not Available No t Available atorvastatin 20 mg tablet active Not Available Not Available Not Available meloxicam 15 mg tablet Take 1 tablet every day by oral route after meal(s). active Not Available Not Available No t Available tramadol 50 mg tablet TAKE 1 TO 2 TABS BY MOUTH EVERY 8 HOURS NEEDED 10 DAYS active Not Available Not Available No t Available tamsulosin 0.4 mg capsule active Not Available Not Available N ot Available losartan 100 mg tablet active Not Available Not Available No t Available dutasteride 0.5 mg capsule active Not Available Not Availab le Not Available metoprolol tartrate 25 mg tablet active Not Available Not Available Not Available Vitals Date Recorded Body height Body mass index (BMI) Body weight Provider Name and Address Organization Details Last Updated DateTime 04/09/2024 177.8 cm 22.4 kg/m2 15500.41 g Ginny Carlosnnamdi [facility] 04/09/2024 14:03:20 Date Recorded Body height Body mass index (BMI) Body weight Provider Name and Address Organization Details Last Updated DateTime 04/30/2024 172.72 cm 23.7 kg/m2 28422.41 g GRABIEL GONSALEZ [facility] 04/30/2024 09:02:43 Date Recorded Body height Body mass index (BMI) Body weight Provider Name and Address Organization Details Last Updated DateTime 05/05/2024 172.72 cm 23.7 kg/m2 20199.41 g Brandon Chaneloney [facility] 05/05/2024 14:22:28 Social History None recorded. Functional Status None recorded. Mental Status None recorded. Family History Nothing Reported. Medical History No medical history recorded. Past Encounters Encounter ID Performer Location Encounter Start Date Encounter Closed Date Diagnosis/Indication Diagnosis SNOMED-CT Code Diagnosis ICD10 Code Diagnosis Note [id number] Sarah Edmond PA-C [facility] [address] [place] [address] 04/09/2024 13:52:11 05/01/2024 09:37:52 Osteoarthritis of left hip joint [id number] 62228 M16.12 [id number] MD Mello Arana [address] [place] [address] 04/30/2024 08:46:36 05/26/2024 12:17:10 Osteoarthritis of left hip joint 4230505534 67552 M16.12 Arthritis of left hip 10 20959987 770175 M13.740 [id number] ESTEFANY Montemayor [address] [place] [place] [address] 05/05/2024 13:58:32 06/01/2024 15:11:06 Osteoarthritis of left hip joint 2941976080 31678 M16.12 After a long discussion with the patient which included the risk and benefits of the procedure. Patient has excellent relief in his pain and symptoms with medication management alone. He has been taking meloxicam and tramadol. He stopped all medication s 4 days ago and symptoms have not returned. Therefore would recommend holding off on intra-radha cular cortisone injection today. If symptoms return would recommend reinitiati ng first meloxicam followed by tramadol. If symptoms continue even with that I would be happy to accommodat e him in my schedule for ultrasound -guided intra-radha cular cortisone injection as needed. He is in agreement with this. All questions and concerns were addressed and answered. Health Concerns Section Related Observation LastModified by Organization Detai ls LastModified Time None Recorded Concern Status LastModified by Organization Details LastModified Time None Recorded Advance Directives Directive None Recorded Payers Insurance Date Sequence Insurance Name Policy Number Policy Sanchez Covered Member ID Sanchez Member ID Guarantor Name 06/02/2024 2 [place] [id number] Thomas Naqvi [id number] Thomas Naqvi 05/05/2024 1 [place] [employer] Thomas Naqvi [id number] Thomas Naqvi Notes Date Note Type Note Provider Name and Address Organization Details Recorded Time 04/09/2024 text/html Patient seen und er general supervision of Dr. Pak who was available but who did not see the patient.HPI:83-year-o ld patient seen today regarding left hip pain. No specific inciting events or instance reported. Patient denies any falls or trauma. Began experiencing difficulty sometime ago which is becoming progressively worse. Difficulty with ambulatory activities. Has tried yoai-veo-yyepsxv pain relievers without significant relief. Comes in today for orthopedic care. Denies numbness or tingling lower extremity. Presents today with x-rays from his primary care providerPast family, medical, social history and review of systems has been reviewed, updated and signed by me and is located in the patient s chart.Examination:83- year-old no acute distress alert and oriented. On examination of left hip, no significant effusion erythema or warmth. Range of motion limited with groin pain elicited with internal rotation. No gross instability elicited. Calf is soft and nontender. Lower extremity neurovascularly intact.Right hip shows no warmth, erythema, swelling or effusion. Full ROM, 5/5 strength all muscle groups, and no evidence of instability.X-rays independently reviewed at [facility] 2 views left hip brought in on a disc by outside facility reveal noted arthritic change, no evidence of acute fracture. Osteophyte formation appreciated.Impressio n: Symptomatic left Hip arthritisPlan: Potential treatment options are discussed. Role of conservative management versus surgical intervention discussed. Possibilities including that of corticosteroid injection, total hip arthroplasty, vkku-ntd-ussfloy medications, and ambulatory assistive devices. Patient wished to proceed with prescription for meloxicam which was sent to his pharmacy, as well as an appointment with one of our joint surgeons for discussion of total hip replacement surgery. He requested Dr. Paz per his primary care doctor's referral. All questions answeredDrHCA [facility] speech recognition log turner software was used to create portions of this document. An attempt at proofreading has been made to minimize errors. Please call for corrections. Sarah Edmond PA-C [address], [place], [address], [facility] 04/09/2024 14:45:39 04/30/2024 text/html History of prese nt illness:Complaint: Left hip painPain: The pain is currently relatively well managed, he has been taking meloxicam over the last month and has had significant improvement with this medicationNon-operati ve treatment: He has been taking anti-inflammatories, he has not yet tried physical therapy or an intra-articular injectionRobert is an extremely friendly and pleasant 84-year-old male who presents today for evaluation for his left hip. He has radiographic evidence of bilateral hip posterior arthritis, moderate to severe in nature. He states that the pain has been present for a couple of months and he saw one of our physician assistants recently who prescribed him an long acting anti-inflammatory which he has been taking. He states that the pain has been improved since that point, he understands that he may require hip replacement surgery eventually but would like to try to avoid this procedure with nonoperative treatment if he can continue to do so.Past family, medical, social history and review of systems has been reviewed and updated, and is located in the patient s chart. Ron Paz MD [address], [place], [address], [facility] 04/30/2024 10:48:49 05/05/2024 text/html I am seeing the patient under the general supervision of Dr. Zaman who was available but who did not see the patient. Pleasant 84 year old male who has known diagnosis of left hip osteoarthritis. Presents today for ultrasound-guided intraarticular cortisone injection. However patient reports that he was taking his meloxicam and tramadol as previously prescribed and his symptoms have for the most part resolved. He stopped all medications over 4 days ago and states that symptoms have not returned. Therefore he elects to hold off on injection today. Sonya Downs PA-C [address] [facility] [address] [facility] [address] [facility] [address], [place], [address], [facility] 05/05/2024 14:44:26
[2025-05-19 18:09] LABS: Free Prostate Spec Ag 1.1 ng/mL; Percent Free Prostate Spec Ag 22 % (calc) (>25)
== END 2025-05-18 08:01 | disposition home or self-care (01) ==
LOC: HO.LNP 08:00
PROVIDERS: Visit Provider Internal Medicine
DX: E11.9 Type 2 diabetes mellitus without complications (principal); E78.00 Pure hypercholesterolemia, unspecified; N40.0 Benign prostatic hyperplasia without lower urinary tract symptoms; I10 Essential (primary) hypertension; Z12.5 Encounter for screening for malignant neoplasm of prostate
CPT/HCPCS: 80053; 80061; 81001; 82043; 82570; 83036; 84153; 84154; 85025